=== PATIENT | male | born 1985 | race Caucasian/White ===

== ENCOUNTER → 2023-03-11 | Outpatient (CLI) | payer OTHER | LOC: LAB 05:45 → LAB SHORT 05:45 | DX: R19.7 Diarrhea, unspecified (principal) | CPT/HCPCS: 83993 ==

== ENCOUNTER 2023-05-08 12:18 | Day surgery (SDC) | payer OTHER ==
[~2023-05-08] VITALS: Ht 182.9 cm; Wt 109.2 kg
[2023-05-08 15:16] VITALS: BP 121/74
--- NOTE | 2023-05-08 15:25 | NUR ---
[facility], SAID HIS GIRLFRIEND WOULD "HAVE BOBA TEA IN THE CAR" THAT HE WANTED INSTEAD. PATIENT REFUSED WHEELCHAIR TO CAR, WAS ASSISTED SBA TO CAR WITHOUT ISSUES.
== END 2023-05-08 15:00 | disposition home or self-care (01) ==
LOC: ORSCSDS 12:18
PROVIDERS: Specialist
PROC: 0DB98ZX Excision of Duodenum, Via Natural or Artificial Opening Endoscopic, Diagnostic (ICD-10-PCS; principal; 2023-05-08 14:15)
PROC: 0DBE8ZX Excision of Large Intestine, Via Natural or Artificial Opening Endoscopic, Diagnostic (ICD-10-PCS; principal; 2023-05-08 14:15)
PROC: 0DB78ZX Excision of Stomach, Pylorus, Via Natural or Artificial Opening Endoscopic, Diagnostic (ICD-10-PCS; principal; 2023-05-08 14:15)
DX: R19.7 Diarrhea, unspecified (principal); B18.2 Chronic viral hepatitis C; R11.0 Nausea; K44.9 Diaphragmatic hernia without obstruction or gangrene; K22.10 Ulcer of esophagus without bleeding; K29.70 Gastritis, unspecified, without bleeding; K64.8 Other hemorrhoids; Z68.34 Body mass index [BMI] 34.0-34.9, adult; F17.210 Nicotine dependence, cigarettes, uncomplicated
CPT/HCPCS: 88305; 88342; J0461; J2001; J2405; J2704; J7120; Q9968

== ENCOUNTER → 2024-03-08 | Outpatient (CLI) | payer BC, OTHER ==
[~2024-03-08] MED LIST: Atarax10 MG PO
[2024-03-08 15:20] LABS: BASOPHILS ABSOLUTE AUTO 0.03 K/mm3 (0.00-0.23); BASOPHILS PERCENT AUTO 1 % (0-2); EOSINOPHILS PERCENT AUTO 0 % (0-6); Hematocrit 44.2 % (37.0-53.0); Hemoglobin 14.8 g/dL (13.5-17.5); IMMATURE GRAN ABSOLUTE AUTO 0.06 K/mm3 (0.00-0.10); IMMATURE GRAN PERCENT AUTO 1 % (0-1); LYMPHOCYTES ABSOLUTE AUTO 2.63 K/mm3 (0.84-5.20); LYMPHOCYTES PERCENT AUTO 52 % (21-46); MONOCYTES ABSOLUTE AUTO 0.28 K/mm3 (0.16-1.47); MONOCYTES PERCENT AUTO 6 % (4-13); Mean Corpuscular HGB Conc 33.5 g/dL (31.5-36.5); Mean Corpuscular Volume 84 fL (80-100); Mean Platelet Volume 9.5 fL (9.1-12.4); NEUTROPHILS ABSOLUTE AUTO 2.09 K/mm3 (1.96-9.15); NEUTROPHILS PERCENT AUTO 41 % (41-73); Platelet Count 202 K/mm3 (150-400); RDW Coefficient Variation 13.8 % (11.7-14.2); Red Blood Cell Count 5.28 M/mm3 (4.30-5.90); White Blood Cell Count 5.09 K/mm3 (4.00-11.30)
[2024-03-08 21:24] LABS: Alanine Aminotransfer (ALT/SGP 28 U/L (12-78); Albumin, Blood 3.2 g/dL (3.4-5.0); Albumin/Globulin Ratio 0.7 (0.8-1.8); Alk Phos 83 U/L (50-136); Anion Gap 10 mmol/L (3-11); Aspartate Aminotrans (AST/SGOT 68 U/L (12-37); Bilirubin, Total 0.4 mg/dL (0.1-1.0); Blood Urea Nitrogen 10 mg/dL (8-24); Bun/Creatinine Ratio 14.2 (12.0-20.0); C-REACTIVE PROTEIN, EXT RANGE <0.290 mg/dL (0.000-0.300); CO2, Blood 24 mmol/L (21-32); Calcium, Blood 7.5 mg/dL (8.5-10.1); Chloride, Blood 97 mmol/L (98-108); Globulin, Blood 4.7 g/dL (2.2-4.0); Glomerular Filtration Rate 121 (60-); Glucose, Blood 101 mg/dL (70-99); Potassium, Blood 4.3 mmol/L (3.5-5.5); Sodium, Blood 127 mmol/L (136-145); Total Protein, Blood 7.9 g/dL (6.4-8.2)
== END | disposition home or self-care (01) ==
LOC: LAB SHORT 14:53 → LAB 14:53
PROVIDERS: Physician Assistant
DX: R11.0 Nausea (principal); R53.83 Other fatigue
CPT/HCPCS: 80053; 83690; 85025; 86140

== ENCOUNTER 2025-02-26 09:55 | Emergency (ER) | payer OTHER, BC ==
[~2025-02-26] VITALS: Ht 185.4 cm; Wt 108.9 kg
[2025-02-26] MEDS ORDERED: Ondansetron HCl 2 MG / ML 2ML Vial IV ONE (10:15)
[2025-02-26] MEDS ORDERED: Morphine Sulfate 4 MG/1 ML Injection IV ONE (10:15)
[2025-02-26 10:24] LABS: BASOPHILS ABSOLUTE AUTO 0.04 K/mm3 (0.00-0.23); BASOPHILS PERCENT AUTO 0 % (0-2); EOSINOPHILS ABSOLUTE AUTO 0.08 K/mm3 (0.00-0.68); EOSINOPHILS PERCENT AUTO 1 % (0-6); Hematocrit 47.0 % (37.0-53.0); Hemoglobin 16.2 g/dL (13.5-17.5); IMMATURE GRAN ABSOLUTE AUTO 0.06 K/mm3 (0.00-0.10); IMMATURE GRAN PERCENT AUTO 0 % (0-1); LYMPHOCYTES ABSOLUTE AUTO 3.42 K/mm3 (0.84-5.20); LYMPHOCYTES PERCENT AUTO 22 % (21-46); MONOCYTES ABSOLUTE AUTO 1.22 K/mm3 (0.16-1.47); MONOCYTES PERCENT AUTO 8 % (4-13); Mean Corpuscular HGB Conc 34.5 g/dL (31.5-36.5); Mean Corpuscular Volume 87 fL (80-100); NEUTROPHILS ABSOLUTE AUTO 10.45 K/mm3 (1.96-9.15); NEUTROPHILS PERCENT AUTO 68 % (41-73); NRBC ABSOLUTE 0.00 K/mm3 (0.00-0.02); NRBC Auto 0.0 /100 WBC (0.0-0.2); Platelet Count 378 K/mm3 (150-400); RDW Coefficient Variation 13.1 % (11.7-14.2); RDW Standard Deviation 41.4 fL (35.1-46.3)
[2025-02-26 10:42] VITALS: BP 114/93
[2025-02-26 10:49] LABS: Alanine Aminotransfer (ALT/SGP 34.0 U/L (12-78); Albumin, Blood 3.8 g/dL (3.4-5.0); Albumin/Globulin Ratio 0.8 (0.8-1.8); Anion Gap 9.0 mmol/L (3-11); Aspartate Aminotrans (AST/SGOT 42.0 U/L (12-37); Bilirubin, Total 0.6 mg/dL (0.1-1.0); Blood Urea Nitrogen 14.0 mg/dL (8-24); CO2, Blood 28.0 mmol/L (21-32); Calcium, Blood 8.7 mg/dL (8.5-10.1); Chloride, Blood 100.0 mmol/L (98-108); Creatinine, Blood 0.79 mg/dL (0.60-1.20); Globulin, Blood 4.8 g/dL (2.2-4.0); Glucose, Blood 140.0 mg/dL (70-99); Potassium, Blood 4.1 mmol/L (3.5-5.5); Sodium, Blood 133.0 mmol/L (136-145); Total Protein, Blood 8.6 g/dL (6.4-8.2)
[2025-02-26] MEDS ORDERED: CYCL10 PO (11:58)
[2025-02-26] MEDS ORDERED: OXYACE7.5T PO (11:58)
== END 2025-02-26 12:15 | disposition home or self-care (01) ==
LOC: ER 09:55
PROVIDERS: Emergency Medicine
DX: S20.211A Contusion of right front wall of thorax, initial encounter (principal); S00.11XA Contusion of right eyelid and periocular area, initial encounter; S80.11XA Contusion of right lower leg, initial encounter; S00.03XA Contusion of scalp, initial encounter; S00.31XA Abrasion of nose, initial encounter; V29.408A Other motorcycle driver injured in collision with unspecified motor vehicles in traffic accident, initial encounter
CPT/HCPCS: 70450; 71260; 72125; 73562-RT; 73590; 74177; 80053; 85025; 90715; J2270; J2405; Q9967

== ENCOUNTER → 2025-03-03 | Outpatient (CLI) | payer BC, OTHER ==
[~2025-03-03] MED LIST changes: +CYCL10 PO; +OXYACE7.5T PO
== END | disposition home or self-care (01) ==
LOC: LAB SHORT 15:19 → LAB 15:19
DX: S81.802A Unspecified open wound, left lower leg, initial encounter (principal)
CPT/HCPCS: 87070; 87077; 87147; 87186; 87205

== ENCOUNTER 2025-03-19 13:43 | Emergency (ER) | payer OTHER, BC ==
[~2025-03-19] VITALS: Ht 182.9 cm; Wt 108.9 kg
[2025-03-19 15:09] VITALS: BP 149/92
[2025-03-19 15:33] LABS: BASOPHILS ABSOLUTE AUTO 0.05 K/mm3 (0.00-0.23); BASOPHILS PERCENT AUTO 1 % (0-2); EOSINOPHILS ABSOLUTE AUTO 0.26 K/mm3 (0.00-0.68); EOSINOPHILS PERCENT AUTO 4 % (0-6); Hematocrit 38.2 % (37.0-53.0); Hemoglobin 12.3 g/dL (13.5-17.5); IMMATURE GRAN ABSOLUTE AUTO 0.02 K/mm3 (0.00-0.10); IMMATURE GRAN PERCENT AUTO 0 % (0-1); LYMPHOCYTES ABSOLUTE AUTO 2.27 K/mm3 (0.84-5.20); LYMPHOCYTES PERCENT AUTO 37 % (21-46); MONOCYTES ABSOLUTE AUTO 0.46 K/mm3 (0.16-1.47); MONOCYTES PERCENT AUTO 8 % (4-13); Mean Corpuscular HGB Conc 32.2 g/dL (31.5-36.5); Mean Corpuscular Volume 92 fL (80-100); NEUTROPHILS ABSOLUTE AUTO 3.05 K/mm3 (1.96-9.15); NEUTROPHILS PERCENT AUTO 50 % (41-73); NRBC ABSOLUTE 0.00 K/mm3 (0.00-0.02); NRBC Auto 0.0 /100 WBC (0.0-0.2); Platelet Count 276 K/mm3 (150-400); RDW Coefficient Variation 13.8 % (11.7-14.2); RDW Standard Deviation 47.0 fL (35.1-46.3)
[2025-03-19 16:11] LABS: Alanine Aminotransfer (ALT/SGP 34.0 U/L (12-78); Albumin, Blood 3.7 g/dL (3.4-5.0); Albumin/Globulin Ratio 0.9 (0.8-1.8); Anion Gap 4.0 mmol/L (3-11); Aspartate Aminotrans (AST/SGOT 73.0 U/L (12-37); Bilirubin, Total 0.5 mg/dL (0.1-1.0); Blood Urea Nitrogen 14.0 mg/dL (8-24); CO2, Blood 31.0 mmol/L (21-32); Calcium, Blood 8.4 mg/dL (8.5-10.1); Chloride, Blood 104.0 mmol/L (98-108); Creatinine, Blood 0.75 mg/dL (0.60-1.20); Globulin, Blood 4.1 g/dL (2.2-4.0); Glucose, Blood 90.0 mg/dL (70-99); Potassium, Blood 3.8 mmol/L (3.5-5.5); Sodium, Blood 135.0 mmol/L (136-145); Total Protein, Blood 7.8 g/dL (6.4-8.2)
[2025-03-19] MEDS ORDERED: Trimethoprim/Sulfamethoxazole DS Tab PO ONE (20:20)
[2025-03-19] MEDS ORDERED: Bactrim Ds Tab1 EACH PO (20:53)
== END 2025-03-19 20:59 | disposition home or self-care (01) ==
LOC: ER 13:43
PROVIDERS: Student in an Organized Health Care Education/Training Program
DX: S70.11XA Contusion of right thigh, initial encounter (principal); V62 Occupant of heavy transport vehicle injured in collision with two- or three-wheeled motor vehicle; Z79.899 Other long term (current) drug therapy
CPT/HCPCS: 10140; 73701; 80053; 83605; 85025; 87070; 87075; 87205; 99283-25; A9270; Q9967

== ENCOUNTER 2025-03-25 03:33 | Day surgery (SDC) | payer OTHER, BC ==
[~2025-03-25 03:33] MED LIST changes: +Bactrim Ds Tab1 EACH PO
== END 2025-03-25 23:00 | disposition home or self-care (01) ==
LOC: WOUND 03:33
DX: S81.001D Unspecified open wound, right knee, subsequent encounter (principal); V23.4 Motorcycle driver injured in collision with car, pick-up truck or van in traffic accident; L03.115 Cellulitis of right lower limb; F17.210 Nicotine dependence, cigarettes, uncomplicated; Z21 Asymptomatic human immunodeficiency virus [HIV] infection status
CPT/HCPCS: G0463

== ENCOUNTER 2025-04-14 02:17 | Day surgery (SDC) | payer OTHER, BC ==
[2025-04-14] MEDS ORDERED: Lidocaine HCl 4% Cream 5 GM ONE (12:24)
== END 2025-04-14 23:00 | disposition home or self-care (01) ==
LOC: WOUND 02:17
DX: S81.001A Unspecified open wound, right knee, initial encounter (principal); L03.115 Cellulitis of right lower limb; V24.41XA Electric (assisted) bicycle driver injured in collision with heavy transport vehicle or bus in traffic accident, initial encounter; F17.210 Nicotine dependence, cigarettes, uncomplicated; Z21 Asymptomatic human immunodeficiency virus [HIV] infection status
CPT/HCPCS: A6213; A9270

== ENCOUNTER 2025-04-28 01:10 | Day surgery (SDC) | payer BC, OTHER ==
[2025-04-28] MEDS ORDERED: Lidocaine HCl 4% Cream 5 GM ONE (13:08)
== END 2025-04-28 23:00 | disposition home or self-care (01) ==
LOC: WOUND 01:10
DX: S81.801A Unspecified open wound, right lower leg, initial encounter (principal); L03.115 Cellulitis of right lower limb; X58.XXXA Exposure to other specified factors, initial encounter; F17.210 Nicotine dependence, cigarettes, uncomplicated
CPT/HCPCS: A9270; G0463

== ENCOUNTER 2025-05-01 13:04 | Inpatient (IN) | payer BC, OTHER ==
[~2025-05-01] VITALS: Ht 185.4 cm; Wt 109.8 kg
[2025-05-01 13:41] LABS: BASOPHILS ABSOLUTE AUTO 0.03 K/mm3 (0.00-0.23); BASOPHILS PERCENT AUTO 0 % (0-2); EOSINOPHILS ABSOLUTE AUTO 0.16 K/mm3 (0.00-0.68); EOSINOPHILS PERCENT AUTO 2 % (0-6); Hematocrit 44.7 % (37.0-53.0); Hemoglobin 14.7 g/dL (13.5-17.5); IMMATURE GRAN ABSOLUTE AUTO 0.02 K/mm3 (0.00-0.10); IMMATURE GRAN PERCENT AUTO 0 % (0-1); LYMPHOCYTES ABSOLUTE AUTO 2.18 K/mm3 (0.84-5.20); LYMPHOCYTES PERCENT AUTO 31 % (21-46); MONOCYTES ABSOLUTE AUTO 0.49 K/mm3 (0.16-1.47); MONOCYTES PERCENT AUTO 7 % (4-13); Mean Corpuscular HGB Conc 32.9 g/dL (31.5-36.5); Mean Corpuscular Volume 90 fL (80-100); NEUTROPHILS ABSOLUTE AUTO 4.07 K/mm3 (1.96-9.15); NEUTROPHILS PERCENT AUTO 59 % (41-73); NRBC ABSOLUTE 0.00 K/mm3 (0.00-0.02); NRBC Auto 0.0 /100 WBC (0.0-0.2); Platelet Count 344 K/mm3 (150-400); RDW Coefficient Variation 12.6 % (11.7-14.2); RDW Standard Deviation 41.7 fL (35.1-46.3)
[2025-05-01 14:09] LABS: Alanine Aminotransfer (ALT/SGP 20.0 U/L (12-78); Albumin, Blood 3.4 g/dL (3.4-5.0); Albumin/Globulin Ratio 0.7 (0.8-1.8); Anion Gap 9.0 mmol/L (3-11); Aspartate Aminotrans (AST/SGOT 25.0 U/L (12-37); Bilirubin, Total 0.3 mg/dL (0.1-1.0); Blood Urea Nitrogen 10.0 mg/dL (8-24); CO2, Blood 27.0 mmol/L (21-32); Calcium, Blood 8.7 mg/dL (8.5-10.1); Chloride, Blood 105.0 mmol/L (98-108); Creatinine, Blood 0.83 mg/dL (0.60-1.20); Globulin, Blood 4.6 g/dL (2.2-4.0); Glucose, Blood 97.0 mg/dL (70-99); Potassium, Blood 3.8 mmol/L (3.5-5.5); Sodium, Blood 137.0 mmol/L (136-145); Total Protein, Blood 8.0 g/dL (6.4-8.2)
[2025-05-01] MEDS ORDERED: Ondansetron HCl 2 MG / ML 2ML Vial IV PRN (18:20)
[2025-05-01] MEDS ORDERED: FLU VACC TS2025-26(6MOS UP)/PF 45 MCG/0.5 ML SYRINGE IM SCH (18:20)
[2025-05-01] MEDS ORDERED: CefTRIAXone Sodium 2,000 MG in NS 100 ML IV SCH (19:00)
[2025-05-01] MEDS ORDERED: Vancomycin (Pharmacy Consult) IV SCH (19:00)
[2025-05-01] MEDS ORDERED: Lactobacil 2-S.Thermo-Bifido 1 1 Cap PO SCH (21:00)
[2025-05-01 21:23] VITALS: BP 126/71
[2025-05-01] MEDS ORDERED: BIKTARVY 50-201 EAC1 PO (21:48)
[2025-05-01] MEDS ORDERED: BIKTARVY TABLET PO SCH (22:25)
[2025-05-02] VITALS (11 sets, daily range): BP systolic 103–145; BP diastolic 61–97
[2025-05-02 04:50] LABS: Hematocrit 42.2 % (37.0-53.0); Hemoglobin 13.7 g/dL (13.5-17.5); Mean Corpuscular HGB Conc 32.5 g/dL (31.5-36.5); Mean Corpuscular Volume 91 fL (80-100); NRBC ABSOLUTE 0.00 K/mm3 (0.00-0.02); NRBC Auto 0.0 /100 WBC (0.0-0.2); Platelet Count 273 K/mm3 (150-400); RDW Coefficient Variation 12.5 % (11.7-14.2); RDW Standard Deviation 41.6 fL (35.1-46.3)
[2025-05-02 05:06] LABS: Prothrombin Time Results 10.5 Sec (9.7-11.5)
[2025-05-02 05:18] LABS: Anion Gap 7.0 mmol/L (3-11); Blood Urea Nitrogen 9.0 mg/dL (8-24); CO2, Blood 27.0 mmol/L (21-32); Calcium, Blood 8.8 mg/dL (8.5-10.1); Chloride, Blood 106.0 mmol/L (98-108); Creatinine, Blood 0.79 mg/dL (0.60-1.20); Glucose, Blood 99.0 mg/dL (70-99); Potassium, Blood 3.9 mmol/L (3.5-5.5); Sodium, Blood 136.0 mmol/L (136-145)
[2025-05-02] MEDS ORDERED: Enoxaparin 40 MG/0.4 ML SYR SC SCH (09:00)
[2025-05-02] MEDS ORDERED: Midazolam HCl 1MG / ML 2ML Vial IV SCH (13:55)
[2025-05-02] MEDS ORDERED: Metoclopramide HCl 5MG / ML 2ML Vial ONE (14:09)
[2025-05-02] MEDS ORDERED: Rocuronium Bromide 10 MG/ML 5ML Injection IV ONE (14:09)
[2025-05-02] MEDS ORDERED: Ondansetron HCl 2 MG / ML 2ML Vial ONE (14:09)
[2025-05-02] MEDS ORDERED: FentaNYL Citrate 50 MCG/ML 2 ML Injection ONE ×2 (14:12→15:03)
[2025-05-02] MEDS ORDERED: FentaNYL Citrate 50 MCG/ML 5 ML Injection ONE (14:29)
[2025-05-02] MEDS ORDERED: Sodium Hypochlorite 480 ML BTL (0.25%) ONE (14:36)
[2025-05-02] MEDS ORDERED: Morphine Sulfate 4 MG/1 ML Injection IV PRN (14:40)
[2025-05-02] MEDS ORDERED: Metoclopramide HCl 5MG / ML 2ML Vial IV PRN (14:40)
[2025-05-02] MEDS ORDERED: FentaNYL Citrate 50 MCG/ML 2 ML Injection IV PRN ×2 (14:40)
[2025-05-02] MEDS ORDERED: Ondansetron HCl 2 MG / ML 2ML Vial IV PRN (14:40)
[2025-05-02] MEDS ORDERED: HYDROmorphone HCl/Pf 1MG SYR IV PRN (14:40)
[2025-05-02] MEDS ORDERED: Sugammadex Sodium 200 MG/2ML SDV (100 MG/ML) ONE (14:43)
[2025-05-02] MEDS ORDERED: HYDROmorphone HCl/Pf 1MG SYR ONE (15:03)
[2025-05-02] MEDS ORDERED: Vancomycin (Pharmacy Consult) IV SCH (15:15)
[2025-05-02] MEDS ORDERED: NS 250 ML IV PRN (16:40)
--- NOTE | 2025-05-02 17:33 | NUR ---
SHIFT SUMMARY PT AOX4, INDEPENDENT IN THE ROOM. I AND D DONE TODAY ON THE R KNEE. PT TOLERATED IT WELL, MEDICATED FOR PAIN PER THE EMAR. PT UPSET HE COULD NOT GO OUTSIDE AND SMOKE, EDUCATED ON THE POLICY. PT AGREED BUT IS STILL IRRITATED. PER OR NURSE, PROVIDER IS RECOMMENDING PT STAY UNTIL FRIDAY FOR IV ABX. PT AWARE AND NOT PLEASED WITH THIS. AT THE BS EARLIER THIS SHIFT AND UPDATED ON THE PLAN. CALL LIGHT WITHIN REACH, BED LOCKED AND IN THE LOWEST POSITION. WILL REPORT TO ONCOMING NURSE.
[2025-05-03] MEDS ORDERED: Misc. Tablet PO SCH (02:20)
--- NOTE | 2025-05-03 05:01 | NUR ---
SHIFT SUMMARY; PATIENT ABLE TO WALK IN HALLWAY INDEPENTLY. LEG DRESSING CD&i. MEDICATED OR PAIN SEVERAL TIMES. 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 HAD TO CALL HOSPITALIST D/T HIS HIV MED DC'D BY SURGEON.
[2025-05-03 05:04] VITALS: BP 109/77
[2025-05-03 05:40] LABS: Vancomycin, Trough 13.2 ug/mL (5.0-10.0)
[2025-05-03 07:27] VITALS: BP 106/69
[2025-05-03] MEDS ORDERED: Ketorolac Tromethamine 15mg Vial IV PRN (07:50)
--- NOTE | 2025-05-03 17:16 | NUR ---
SHIFT SUMMARY PT AOX4, INDEPENDENT IN THE ROOM. I AND D DONE YESTERDAY, MEDICATED FOR PAIN PER THE EMAR. CALLS AND MAKES HIS NEEDS KNOWN. AT THE BS TODAY. DRESSING TO STAY INTACT UNTIL SURGEON SEES HIM TOMORROW. SITE APPEARS CDI. POSSIBLE DC TOMORROW. CALL LIGHT WITHIN REACH, BED LOCKED AND IN THE LOWEST POSITION. WILL REPORT TO ONCOMING NURSE.
[2025-05-03 17:22] VITALS: BP 122/63
--- NOTE | 2025-05-03 17:25 | NUR ---
NOTE: PER PHARMACISTREY, IT IS OKAY TO RUN ENA AND MAGGIE TOGETHER AT THE Y SITE. SHE SAID THEY ARE COMPATIBLE.
[2025-05-03 19:24] VITALS: BP 120/73
[2025-05-04 04:15] VITALS: BP 115/68
[2025-05-04 04:51] LABS: BASOPHILS ABSOLUTE AUTO 0.07 K/mm3 (0.00-0.23); BASOPHILS PERCENT AUTO 1 % (0-2); EOSINOPHILS ABSOLUTE AUTO 0.19 K/mm3 (0.00-0.68); EOSINOPHILS PERCENT AUTO 3 % (0-6); Hematocrit 39.2 % (37.0-53.0); Hemoglobin 12.8 g/dL (13.5-17.5); IMMATURE GRAN ABSOLUTE AUTO 0.05 K/mm3 (0.00-0.10); IMMATURE GRAN PERCENT AUTO 1 % (0-1); LYMPHOCYTES ABSOLUTE AUTO 2.32 K/mm3 (0.84-5.20); LYMPHOCYTES PERCENT AUTO 30 % (21-46); MONOCYTES ABSOLUTE AUTO 0.76 K/mm3 (0.16-1.47); MONOCYTES PERCENT AUTO 10 % (4-13); Mean Corpuscular HGB Conc 32.7 g/dL (31.5-36.5); Mean Corpuscular Volume 89 fL (80-100); NEUTROPHILS ABSOLUTE AUTO 4.28 K/mm3 (1.96-9.15); NEUTROPHILS PERCENT AUTO 56 % (41-73); NRBC ABSOLUTE 0.00 K/mm3 (0.00-0.02); NRBC Auto 0.0 /100 WBC (0.0-0.2); Platelet Count 295 K/mm3 (150-400); RDW Coefficient Variation 12.3 % (11.7-14.2); RDW Standard Deviation 40.6 fL (35.1-46.3)
--- NOTE | 2025-05-04 04:53 | NUR ---
SHIFT SUMMARY NOC PT A/O X 4. PLEASANT AND COOPERATIVE WITH CARE. VSS. NO ACUTE EVENTS TO REPORT. PT DRESSING ON R KNEE IS C/D/I AND WILL BE CHANGED TODAY AFTER MD ASSESSES SITE. PT PAIN BEING MANAGED PER EMAR. IV ABX ALSO PER EMAR. PT SPOUSE SPENT NIGHT. PT ON CONTACT ISOLATION FOR RULE OUT OF MRSA IN R KNEE WOUND. PT CURRENTLY RESTING WITH BED IN LOWEST POSITION, AND CALL LIGHT WITHIN REACH.
[2025-05-04 05:09] LABS: Anion Gap 7 mmol/L (3-11); Blood Urea Nitrogen 6 mg/dL (8-24); CO2, Blood 27 mmol/L (21-32); Calcium, Blood 8.3 mg/dL (8.5-10.1); Chloride, Blood 108 mmol/L (98-108); Creatinine, Blood 0.78 mg/dL (0.60-1.20); Glucose, Blood 128 mg/dL (70-99); Potassium, Blood 3.5 mmol/L (3.5-5.5); Sodium, Blood 138 mmol/L (136-145); Vancomycin, Trough 11.8 ug/mL (5.0-10.0)
[2025-05-04 07:34] VITALS: BP 112/73
--- NOTE | 2025-05-04 15:20 | NUR ---
CASE CONFRENCE- REQUEST FROM [facility] TO ASSIST WITH CONTACTING SURGEON TO CLARIFY PLAN FOR PATIENT. CONTACTED DR. HADLEY BUT SHE HAS JUST ROUNDED ON THE PATIENT
[2025-05-04] MEDS ORDERED: OXYC10TA19 PO (15:25)
[2025-05-04] MEDS ORDERED: SULFAMETHOXAZO1 EAC1 PO (15:26)
[2025-05-04] MEDS ORDERED: AMOX-CLAV 875-1 EAC5 PO (15:26)
[2025-05-04] MEDS ORDERED: VISBIOME 112.51 EACH PO (15:38)
[2025-05-04] MEDS ORDERED: Acetaminophen650 M1 PO (15:39)
[2025-05-04] MEDS ORDERED: SULTRIDS PO (15:40)
[2025-05-04] MEDS ORDERED: GLYDO6 M2 TOP (15:40)
--- NOTE | 2025-05-04 18:19 | NUR ---
PATIENT DISCHARGED HOME WITH . PATIENT AND SPOUSE BAGGED ALL POSSESSIONS PRIOR TO LEAVING. IV WAS REMOVED WITHOUT DIFFICULTY. EDUCATION/INSTRUCTIONS DISCUSSED AND IN PATIENT POSSESSION AT TIME OF LEAVING. MEDICTION PRESCRIPTONS FAXED TO [facility] PER PATIENT AND FAMILY PREFERENCE. PATIENT WALKED OUT OF HOSPITAL WITH SPOUSE.
== END 2025-05-04 16:59 | disposition home or self-care (01) | DRG 580 ==
LOC: ER 13:04 → MEDS 18:18 → ERHOLD 18:18 → MEDS 21:21
PROVIDERS: Family Medicine; Nurse Practitioner Acute Care; Orthopaedic Surgery; Student in an Organized Health Care Education/Training Program; ADMIT Internal Medicine
PROC: 3E03329 Introduction of Other Anti-infective into Peripheral Vein, Percutaneous Approach (ICD-10-PCS; principal; 2025-05-01)
PROC: 0JDN0ZZ Extraction of Right Lower Leg Subcutaneous Tissue and Fascia, Open Approach (ICD-10-PCS; 2025-05-01)
DX: L03.115 Cellulitis of right lower limb (principal); Z16.39 Resistance to other specified antimicrobial drug; F15.10 Other stimulant abuse, uncomplicated; F17.210 Nicotine dependence, cigarettes, uncomplicated; F12.90 Cannabis use, unspecified, uncomplicated; F11.10 Opioid abuse, uncomplicated; B95.62 Methicillin resistant Staphylococcus aureus infection as the cause of diseases classified elsewhere; Z21 Asymptomatic human immunodeficiency virus [HIV] infection status; D64.9 Anemia, unspecified; S81.801A Unspecified open wound, right lower leg, initial encounter; X58.XXXA Exposure to other specified factors, initial encounter; Z98.890 Other specified postprocedural states; Z79.891 Long term (current) use of opiate analgesic; Z79.899 Other long term (current) drug therapy
CPT/HCPCS: 36415; 73701; 80048; 80053; 80202; 85025; 85027; 85610; 85651; 86140; 87040; 87071; 87075; 87077; 87147; 87186; 87205; 99285-25; A9270; G0463; J0696; J1171; J1650; J1885; J2250; J2405; J2765; J3010; J3373; J7040; J7050; J7120; Q9967

== ENCOUNTER 2025-05-11 12:14 | Day surgery (SDC) | payer OTHER, BC ==
[~2025-05-11] VITALS: Ht 182.9 cm; Wt 106.5 kg
[~2025-05-11 12:14] MED LIST changes: +AMOX-CLAV 875-1 EAC5 PO; +Acetaminophen650 M1 PO; +BIKTARVY 50-201 EAC1 PO; +Bupivacaine 0.5% W/EPI 1:200000 SDV 30 ML Vial ONE; +GLYDO6 M2 TOP; +OXYC10TA19 PO; +SULFAMETHOXAZO1 EAC1 PO; +SULTRIDS PO; +VISBIOME 112.51 EACH PO
--- NOTE | 2025-05-11 12:59 | NUR ---
05/11/25 1259 DANIA GEORGE PT ADMITTED TO PRE OP - ISO ROOM D/T HX OF HEP C, HIV, MRSA. PT IV TO L HAND. CALL LIGHT IN REACH. ENGAGED IN PRE OP /POST OP TEACHING WITH PATIENT AND GF AT BEDSIDE. PT AWAITING TX TO OR. WILL USE CALL LIGHT IF NEED ARISES.
[2025-05-11] MEDS ORDERED: FentaNYL Citrate 50 MCG/ML 2 ML Injection ONE ×2 (14:28→15:52)
[2025-05-11] MEDS ORDERED: CeFAZolin Sodium 2,000 MG VIAL ONE (14:38)
[2025-05-11] MEDS ORDERED: Ketorolac Tromethamine 30mg Vial ONE (15:52)
[2025-05-11 16:29] VITALS: BP 121/75
--- NOTE | 2025-05-11 17:01 | NUR ---
05/11/25 1701 Shady Trevino PT REPORTED TOLERABLE 5/10 PAIN UPON D/C. HE DENIED NAUSEA AND EXPRESSED READINESS TO RETURN HOME.
== END 2025-05-11 16:50 | disposition home or self-care (01) ==
LOC: ORSCSDS 12:14
PROVIDERS: Orthopaedic Surgery
PROC: 0JBL0ZZ Excision of Right Upper Leg Subcutaneous Tissue and Fascia, Open Approach (ICD-10-PCS; principal; 2025-05-11 13:30)
DX: S71.101D Unspecified open wound, right thigh, subsequent encounter (principal); S70.11XD Contusion of right thigh, subsequent encounter; V14 Pedal cycle rider injured in collision with heavy transport vehicle or bus; Y93.55 Activity, bike riding; B20 Human immunodeficiency virus [HIV] disease; B19.20 Unspecified viral hepatitis C without hepatic coma; K21.9 Gastro-esophageal reflux disease without esophagitis; F17.210 Nicotine dependence, cigarettes, uncomplicated; Z79.899 Other long term (current) drug therapy
CPT/HCPCS: A9270; J0690; J1885; J2704; J3010; J7120